=== PATIENT | male | born 1990 | race Caucasian/White ===

== ENCOUNTER → 2017-05-30 | Day surgery (SDC) | payer BC ==
[2017-05-30] VITALS (11 sets, daily range): BP systolic 108–143; BP diastolic 54–82; PULSE 54–94; RESP 18–38; Ht 170.2 cm; Wt 99.3 kg
[~2017-05-30] VITALS: Ht 170.2 cm; Wt 99.3 kg
[~2017-05-30] MED LIST: CEFAZOLIN 1 GM INJ ONE; DEXAMETHASONE 4 MG/ML 1 ML INJ ONE; DIPHENHYDRAMINE 50 MG INJ IV PRN; EPHEDrine SULFATE 50 MG/5 ML SYG ONE; FAMOTIDINE 20 MG INJ ONE; FENTAnyl 50 MCG/ML VIAL IV PRN; FENTAnyl 50 MCG/ML VIAL ONE; GELATIN SIZE 100 SPONGE ONE; GLYCOPYRROLATE 1 MG INJ ONE; HYDROmorphONE (0.2 MG/ML) 10ML SYG IV PRN; HYDROmorphONE 2 MG/ML SYG ONE; LIDOCAINE 2% (SDV) 5 ML INJ ONE; MEPERIDINE 25 MG INJ IV PRN; METOCLOPRAMIDE 10 MG INJ ONE; MIDAZOLAM 1 MG/ML 2 ML INJ ONE; NEOSTIGMINE 3 MG/3 ML SYRINGE ONE; ONDANSETRON 4 MG INJ IV PRN; ONDANSETRON 4 MG INJ ONE; OXYCODONE/ACETAMINOPHEN (5/325) TAB PO PRN; POLYMYXIN/BACITRACIN 1L IRRIG ONE; POVIDONE IODINE 10% 28.4 GM OINT ONE; PROCHLORPERAZINE 10 MG INJ IV PRN; PROPOFOL 20 ML ONE; ROCURONIUM 50 MG INJ ONE; ROPIVACAINE 0.5 % 30 ML VIAL ONE; SOD CHLORIDE 0.9% 1,000 ML IV SCH; SUCCINYLCHOLINE CHLORIDE 100 MG/5 ML SYG IV ONE; THROMBIN 5000 UNIT VIAL ONE; morphine 2 MG INJ IV PRN
--- NOTE | 2017-05-30 07:00 | HPN ---
Date/Time of Note Date/Time of Note DATE: 05/30/17 TIME: 07:00 Interval H&P Admission Note Pt. seen H&P reviewed: No system changes MAYUR ATWOOD MD May 30, 2017 07:00
--- NOTE | 2017-05-30 08:15 | RADRPT ---
PROCEDURE: Intraoperative imaging of the bilateral ankles with fluoroscopy. CLINICAL INDICATION: Bilateral ankle pain. Intraoperative. TECHNIQUE: These single frontal image of each ankle was obtained with valgus stress for a total of 2 images. 6.7 seconds of fluoroscopy time was used. COMPARISON: No prior study is available for comparison. FINDINGS: Images demonstrate valgus stress of each ankle. IMPRESSION: 1. Intraoperative imaging of the bilateral ankles. RPTAT: QQ .Justice Alvarez MD, MD Date Time Electronically viewed and signed by .Justice Alvarez MD, MD on 05/30/2017 08:15 .R/
--- NOTE | 2017-06-08 09:42 | OPR ---
DATE OF OPERATION: 05/30/2017 PREOPERATIVE DIAGNOSES: 1. Osteochondral lesion, posterior talar dome, right ankle. 2. Rule out anterolateral instability in the ankle. 3. Rule out tear of the peroneal tendons. POSTOPERATIVE DIAGNOSES: 1. Posteromedial osteochondral lesion of the cystic mediolateral osteochondral lesion of the right talus. The osteochondral lesion measures 16 x 7. The cystic portion measured 12 x 4 x 4 mm. 2. Synovitis, fibrosis and scarring, right ankle. 3. Peroneal tendon tenosynovitis. 4. No evidence of anterolateral instability. OPERATION PERFORMED: 1. Bilateral inversion stress x-rays under anesthesia. 2. Arthroscopy, right ankle with soft tissue distraction. 3. Excision of medial osteochondral lesion of the talus. 4. Drilling and microfracture, osteochondral lesion of the talus. 5. Extensive debridement. 6. Peroneal tendoscopy with peroneal tenosynovectomy. 7. Short-leg splint. SURGEON: Valentín Perla MD. CAGE LOADER: Nick Jackson. ANESTHESIA: General with a popliteal block. TOURNIQUET TIME: 125 minutes. OPERATIVE PROCEDURE: Patient was taken to the operating room and placed in supine position. Satisfactory popliteal block was given. Satisfactory general anesthesia was administered. 2 g of Ancef given intravenously. Bilateral inversion stress x-rays were done under fluoroscopy. The talus tilted about 5 degrees on both sides and there was no significant anterolateral instability. We did not feel the patient needed a Brostrom procedure. The right thigh was secured in the thigh casillas. All areas were carefully padded. The right leg was prepped and draped in the usual manner. Tourniquet inflated to 250 mmHg and distraction applied. Standard anteromedial, anterolateral and posterolateral portals were used using extreme caution to avoid injuring neurovascular structures. There was synovitis along the medial malleolar articulation, some chondromalacia grade 1-2 in the anterior distal tibia medially, minimal essential overhang, synovitis in the lateral gutter. Anterior gutter was intact. There was an osteochondral lesion along the central and posterior aspect of the medial talar dome, it was unstable and loose. There was a lot of synovitis in the ankle anteriorly and posteriorly with scar . A shaver was inserted. The medial gutter was debrided. Soft tissue peeled off the distal tibia. The lateral gutter was debrided as well as the posterior gutter. Hemorrhagic synovial nodule removed. A probe was inserted underneath the osteochondral lesion, it was completely loose. Using different angled curettes and a shaver, the osteochondral lesion was removed. We knew there was a cyst in the more posterior aspect of the osteochondral lesion. Using a microfracture pick, we broke through the sclerotic bone into the cyst. The cyst cavity was identified. The membrane was removed. Accessory posteromedial portal was made to facilitate this using extreme caution. After all the cysts had been excised, the lesion measured 16 x 7 mm and the cyst portion measured 12 x 4 x 4 mm. Multiple drill holes were made with a 0.045 K-wire. Multiple microfracture holes were made more anteriorly where there were no cysts. Good bleeding was obtained. When a stable rim had been achieved all loose bodies were removed. After complete debridement, the ankle was irrigated clear. Standard peroneal tendoscopy portals were made. Peroneal tendons had tenosynovitis but no obvious tears were seen. We checked from both the superior and inferior portals. The tendons did not appear to dislocate. A shaver was inserted. A tenosynovectomy was performed of the peroneal tendons. Good visualization was seen in the tendons, no tears were seen. We did not feel we needed to make an open incision. The wounds were irrigated clear. The wounds were closed with 4-0 black nylon. A saphenous nerve block was done with 0.5 percent ropivacaine. Compression dressing was applied, as well as a posterior splint in neutral position. At the end of the procedure, sponge and needle count was correct. The patient tolerated the procedure well. Dictated By: Valentín Perla MD /[email or web address] /Document#: [id number]
== END | disposition home or self-care (01) ==
LOC: SDS 05:12
PROVIDERS: ATTEND Orthopaedic Surgery
DX: M94.8X7 Other specified disorders of cartilage, ankle and foot (principal); M65.871 Other synovitis and tenosynovitis, right ankle and foot
CPT/HCPCS: 29891; 73600; J0690; J1100; J1170; J2250; J2405; J2710; J2765; J2795; J3010; J7999